=== PATIENT | male | born 1990 | race Caucasian/White ===

== ENCOUNTER 2022-11-01 08:55 | Emergency (ER) | payer BC, OTHER ==
[2022-11-01 09:07] VITALS: RESP 20; TEMP 97.9; O2SAT 99
--- NOTE | 2022-11-01 09:23 | ERPHSYRPT ---
- History of Present Illness Source: patient Exam Limitations: no limitations Patient Subjective Stated Complaint: C/O cough, headache, SOB that started last night Triage Nursing Assessment: Patient ambulated back to ER without difficulties. He is alert and oriented. No SOB present at this time. He does have an occassional, dry, non-productive cough. Patient coughs when taking deep breaths to listen to lung heard. Lungs clear. Nasal congestion noted during assessment; patient indicates this also started last night. Skin tone normal. Physician History: 32 yo wm w cough/coryza/nausea/diarrhea x 1 day. Pt denies fever/vomiting but states that he is mildly dyspneic upon exertion. He smokes 1/p ppd. Timing/Duration: yesterday Cough Quality/Degree: dry cough Possible Cause: no prior episodes Modifying Factors: Improves With: activity, coughing Associated Symptoms: denies symptoms Allergies/Adverse Reactions: Penicillins Allergy (Verified 11/01/22 08:56) Home Medications: Amitriptyline HCl 10 mg [Elavil 10 mg] 1 tab PO DAILY 11/01/22 [History] Hx Tetanus, Diphtheria Vaccination/Date Given: Yes Hx Influenza Vaccination/Date Given: No Hx Pneumococcal Vaccination/Date Given: No Immunizations Up to Date: Yes Travel Risk - International Travel Have you traveled outside of the country in past 3 weeks: No - Coronavirus Screening Are you exhibiting any of the following symptoms?: Yes Symptoms: Cough: New Onset, Shortness of Breath, Headaches/Body Aches/Fatigue Close contact with a COVID-19 positive Pt in past 14-21 Days: No - Vaccine Status Have you recieved a Covid-19 vaccination: No - Review of Systems Constitutional: No Symptoms, Malaise Eyes: No Symptoms Ears, Nose, & Throat: No Symptoms Respiratory: No Symptoms, Cough, Dyspnea on Exertion (SALAZAR) Cardiac: No Symptoms Abdominal/Gastrointestinal: No Symptoms Genitourinary Symptoms: No Symptoms Musculoskeletal: No Symptoms Skin: No Symptoms Neurological: No Symptoms Psychological: No Symptoms Endocrine: No Symptoms Hematologic/Lymphatic: No Symptoms Immunological/Allergic: No Symptoms - Past Medical History Pertinent Past Medical History: Yes Cardiac History: Myocardial Infarction ([place]), Other Respiratory History: Tuberculosis, Other Musculoskeletal History: Other Psycho-Social History: Depression Other Medical History: mitral valve prolapse, 2 dislocated vertebrae, pleurisy, bronchitis, "spot" on lung - Past Surgical History Past Surgical History: Yes Male Surgical History: Vasectomy Other Surgical History: tubes in ears, vasectomy, left shoulder surgery - Social History Smoking Status: Current every day smoker How long have you smoked: 20 years Exposure to second hand smoke: Yes Drug Use: none Patient Lives Alone: No (fiance) - Nursing Vital Signs Nursing Vital Signs: Initial Vital Signs Temperature 97.9 F 11/01/22 08:55 Pulse Rate 89 11/01/22 08:55 Respiratory Rate 20 11/01/22 08:55 Blood Pressure 131/80 11/01/22 08:55 O2 Sat by Pulse Oximetry 99 11/01/22 08:55 Pain Scale Pain Intensity 3 WNL - Physical Exam General Appearance: no apparent distress Eye Exam: PERRL/EOMI, eyes nml inspection Ears, Nose, Throat Exam: pharyngeal erythema (Mild), other (TM's B w scarring) Neck Exam: normal inspection, non-tender, supple, full range of motion, No meningismus, No mass, No Brudzinski, No Kernig's, No carotid bruit Respiratory Exam: normal breath sounds, lungs clear, airway intact, No respiratory distress Cardiovascular Exam: regular rate/rhythm, normal heart sounds, normal peripheral pulses, capillary refill <2 sec, No murmur Gastrointestinal/Abdomen Exam: soft, normal bowel sounds, No tenderness Back Exam: normal inspection, normal range of motion Extremity Exam: normal inspection, normal range of motion Neurologic Exam: alert, oriented x 3, cooperative, legal secretary II-XII nml as tested, normal mood/affect, nml cerebellar function, nml station & gait, sensation nml, No motor deficits, No sensory deficit Skin Exam: normal color, warm, dry, No rash Lymphatic Exam: No adenopathy SpO2 Interpretation: normal SpO2: 99 O2 Delivery: Room Air - Course Nursing assessment & vital signs reviewed: Yes Lab/Rad Data: Laboratory Results 11/01/22 Range/Units 09:10 Influenza Type A Ag NEGATIVE (NEGATIVE) Influenza Type B Ag NEGATIVE (NEGATIVE) RSV (PCR) NEGATIVE (NEGATIVE) SARS-CoV-2 (PCR) NEGATIVE (NEGATIVE) - Progress Progress Note: 11/01/22 12:56 Nursing note and vital signs reviewed No food or housing insecurities noted All lab results reviewed and shared w pt Pt w good sats, and lungs CTA during entire ER stay Pt most likely has a viral URI Counseled pt/family regarding: lab results, diagnosis, need for follow-up Medical Desision Making - Diagnostic Testing Diagnostic test were ordered, analyzed, and reviewed by me: Yes - Risk of complications Low Risk: Low risk of morbidity from additional dx testing or treatment - Departure Departure Disposition: Home Clinical Impression: Viral URI with cough Condition: Stable Critical Care Time: No Referrals: LUCIE BELL NP [Primary Care Provider] - Follow up/PCP as directed Instructions: Cough, Adult (DC) Additional Instructions: Rest/Fluids/Motrin/Tylenol Follow up with your family MD Return to ER for worsening cough or temperature greater than 100.5
[2022-11-01 09:52] LABS: INFLUENZA A NEGATIVE (NEGATIVE); INFLUENZA B NEGATIVE (NEGATIVE); RESPIRATORY SYNCTIAL VIRUS NEGATIVE (NEGATIVE); SARS-CoV-2 Xpert Express NEGATIVE (NEGATIVE)
[2022-11-01 10:13] VITALS: BP 126/78; PULSE 94
== END 2022-11-01 10:25 | disposition home or self-care (01) ==
LOC: ED 08:55
DX: J06.9 Acute upper respiratory infection, unspecified (principal); R05.1 Acute cough; R09.81 Nasal congestion; R19.7 Diarrhea, unspecified; Z79.899 Other long term (current) drug therapy; Z28.310 Unvaccinated for COVID-19; Z72.0 Tobacco use
CPT/HCPCS: 0241U; 99282